=== PATIENT | female | born 1960 | race Caucasian/White ===

== ENCOUNTER 2017-01-01 11:43 | Emergency (ER) | payer OTHER | END 2017-01-01 14:00 | disposition home or self-care (01) | DX: R07.89 Other chest pain (principal); R00.1 Bradycardia, unspecified; R94.31 Abnormal electrocardiogram [ECG] [EKG]; I10 Essential (primary) hypertension; E78.00 Pure hypercholesterolemia, unspecified ==

== ENCOUNTER 2017-10-03 11:39 | Emergency (ER) | payer OTHER ==
[2017-10-03 11:48] VITALS: BP 150/103
[2017-10-03 12:54] LABS: CALCIUM 9.1 mg/dL (8.5-10.3); CREATININE 0.7 mg/dL (0.4-1.0)
--- NOTE | 2017-10-03 14:30 | ED Physician Documentation ---
History of Present Illness - Stated complaint Stated Complaint: ABNORMAL LAB - Chief complaint Chief Complaint: General - History obtained from History obtained from: Patient - History of Present Illness Timing: Other (She had routine labs done of the base few days ago and she was called because of hyperkalemia. It sounds like they actually repeated and it was normal but for some reason she was referred here for further evaluation and treatment. She feels fine.) Review of Systems Respiratory: reports: Reviewed and negative GI: reports: Reviewed and negative : denies: Dysuria, Frequency PD PAST MEDICAL HISTORY - Past Medical History Past Medical History: Yes Cardiovascular: Hypertension, High cholesterol - Past Surgical History Past Surgical History: No - Present Medications Home Medications: Ambulatory Orders Medication Instructions Recorded Confirmed Lipitor Unknown Dose 01/01/17 Micardis Unknown Dose 01/01/17 - Allergies Allergies/Adverse Reactions: Allergies Allergy/AdvReac Type Severity Reaction Status Date / Time No Known Drug Allergies Allergy Verified 10/03/17 11:48 - Social History Does the pt smoke?: No Smoking Status: Never smoker Does the pt drink ETOH?: Yes ETOH Use: Wine Does the pt have substance abuse?: No - Immunizations Immunizations are current?: Yes - POLST Patient has POLST: No PD ED PE NORMAL - Vitals Vital signs reviewed: Yes - General General: Alert and oriented X 3, No acute distress - Neuro Neuro: Alert and oriented X 3, Normal speech Results - Vitals Vitals: Vital Signs - 24 hr 10/03/17 11:45 Temperature 36.5 C Heart Rate 57 L Respiratory 18 Rate Blood Pressure 150/103 H O2 Saturation 95 Oxygen O2 Source Room air - Labs Labs: Laboratory Tests 10/03/17 12:40 Sodium 138 Potassium 4.1 Chloride 104 Carbon Dioxide 27 Anion Gap 7.0 BUN 17 Creatinine 0.7 Estimated GFR (MDRD) 86 L Glucose 114 H Calcium 9.1 Departure - Departure Disposition: 01 Home, Self Care Clinical Impression: Abnormal laboratory test Condition: Good Record reviewed to determine appropriate education?: Yes Comments: Your blood pressure was elevated today on check into the emergency department. This does not mean that you have hypertension, it is a common phenomenon to come to the emergency department and have elevated blood pressure. I recommend that you see your primary care physician within the week to have it rechecked when you are feeling better.
== END 2017-10-03 14:36 | disposition home or self-care (01) ==
LOC: ED 11:39
DX: E87.5 Hyperkalemia (principal); I10 Essential (primary) hypertension; E78.00 Pure hypercholesterolemia, unspecified
CPT/HCPCS: 36415; 80048; 99282

== ENCOUNTER 2020-06-07 08:46 | Outpatient (CLI) | payer OTHER ==
--- NOTE | 2020-06-15 08:26 | Mammography Report ---
BILATERAL DIGITAL SCREENING MAMMOGRAM 3D/2D: 06/07/2020 CLINICAL: Routine screening. Comparison is made to exams dated: 11/19/2018 mammogram, 07/23/2016 mammogram, and 12/06/2014 mammogra m - [facility]. There are scattered fibroglandular elements in both breasts. No significant masses, calcifications, or other findings are seen in either breast. There has been no significant interval change. IMPRESSION: NEGATIVE There is no mammographic evidence of malignancy. A 1 year screening mammogram is recommended. This exam was interpreted at Station ID: [id number]. NOTE: For mammograms, a report in lay terms will be sent to the patient. Approximately 15% of breast malignancies will not be visualized mammographically. In the management of a palpable breast mass, a negative mammogram must not discourage biopsy of a clinically suspicious lesion. Electronically Signed By: Lalito Wallace M.D., jr/solis:06/14/2020 13:06:06 ACR BI-RADS Category 1: Negative [id number] PARENCHYMAL PATTERN: (A) - The breast(s) demonstrate(s) scattered fibroglandular densities. BI-RADS CATEGORY: (1) - 1 RECOMMENDATION: (ANNUAL) - Recommend routine annual screening mammography. [id number] 1 year screening LATERALITY: (B)
== END 2020-06-07 08:47 | disposition home or self-care (01) ==
LOC: DI.N 08:46
DX: Z12.31 Encounter for screening mammogram for malignant neoplasm of breast (principal)
CPT/HCPCS: 77063; 77067

== ENCOUNTER 2020-09-26 05:35 | Emergency (ER) | payer OTHER ==
--- NOTE | 2020-09-26 06:05 | ED Physician Documentation ---
PD HPI CHEST PAIN - Stated complaint Stated Complaint: CHEST PRESSURE - Chief complaint Chief Complaint: Cardiac - History obtained from History obtained from: Patient - History of Present Illness Timing - onset: Enter time (1730), Last night Timing - onset during: Rest Timing - duration: Hours Timing - details: Abrupt onset, Now resolved Quality: Pressure Location: Substernal Radiation: No: Jaw, Neck, Back, Abdominal, Left upper extremity, Right upper extremity Improved by: Nothing Worsened by: Other (nothing) Associated symptoms: No: Shortness of air, Diaphoresis, Nausea, Vomiting, Feeling faint / dizzy, General Weakness, Palpitations, Cough Similar symptoms before: Diagnosis (GERD) Recently seen: Not recently seen - Additional information Additional information: 60-year-old female with a history of hypertension and reflux was in her usual state of health yesterday went on a run with her grandchild and returned to her home. Some hours later and she does not remember eating dinner she developed pressure in her central chest. She denies any radiation, diaphoresis, nausea or lightheadedness. She did attempt to calm herself by painting and this did not improve the pain. She set her alarm for for 15 to get up to go to work and she still had some residual pain and she felt she needed to be seen for this and has come to the emergency department. Review of Systems Constitutional: denies: Fever Eyes: denies: Decreased vision Ears: denies: Ear pain Nose: denies: Congestion Throat: denies: Sore throat Cardiac: reports: Chest pain / pressure. denies: Palpitations Respiratory: denies: Dyspnea, Cough GI: denies: Abdominal Pain, Nausea, Vomiting, Constipation, Diarrhea : denies: Dysuria, Frequency Skin: denies: Rash Musculoskeletal: denies: Neck pain, Back pain, Extremity pain Neurologic: denies: Generalized weakness, Focal weakness, Numbness PD PAST MEDICAL HISTORY - Past Medical History Cardiovascular: Hypertension, High cholesterol - Past Surgical History Past Surgical History: No - Present Medications Home Medications: Ambulatory Orders Medication Instructions Recorded Confirmed Lipitor Unknown Dose 01/01/17 Micardis Unknown Dose 01/01/17 Amox/Clav 875/125 [Augmentin] 1 each PO Q12H #20 tablet 09/26/20 - Allergies Allergies/Adverse Reactions: Allergies Allergy/AdvReac Type Severity Reaction Status Date / Time No Known Drug Allergies Allergy Verified 10/03/17 11:48 - Social History Does the pt smoke?: No Smoking Status: Never smoker Does the pt drink ETOH?: Yes Does the pt have substance abuse?: No - Immunizations Immunizations are current?: Yes - POLST Patient has POLST: No PD ED PE NORMAL - Vitals Vital signs reviewed: Yes (hypertensive) - General General: Alert and oriented X 3, No acute distress, Well developed/nourished - HEENT HEENT: Atraumatic, PERRL, EOMI - Neck Neck: Supple, no meningeal sign, No bony TTP - Cardiac Cardiac: RRR, No murmur - Respiratory Respiratory: No respiratory distress, Clear bilaterally - Abdomen Abdomen: Normal bowel sounds, Soft, Non tender, Non distended, No organomegaly - Back Back: No CVA TTP, No spinal TTP - Derm Derm: Normal color, Warm and dry, No rash - Extremities Extremities: No deformity, No edema - Neuro Neuro: Alert and oriented X 3, program clinician 2-12 intact, No motor deficit, No sensory deficit, Normal speech Eye Opening: Spontaneous Motor: Obeys Commands Verbal: Oriented GCS Score: 15 - Psych Psych: Normal mood, Normal affect Results - Vitals Vitals: Vital Signs - 24 hr 09/26/20 09/26/20 09/26/20 05:45 05:57 07:18 Temperature 37.1 C 37.1 C Heart Rate 56 L 62 52 L Respiratory 20 16 9 L Rate Blood Pressure 137/88 H 145/84 H 123/81 H O2 Saturation 99 100 98 Oxygen O2 Source Room air - EKG (time done) 0548 Rate: Rate (enter#) (60) Rhythm: NSR [place]: LAD Compare to prior EKG: Changed from prior EKG (SPT 01-01-2017 the rate has increased) Computer interpretation: Disagree with computer (The comupter reads late transition and there is an R wave in V1) - Labs Labs: Laboratory Tests 09/26/20 09/26/20 09/26/20 06:20 06:20 06:20 WBC 6.1 RBC 4.61 Hgb 13.6 Hct 41.8 MCV 90.7 MCH 29.5 MCHC 32.5 RDW 12.5 Plt Count 258 MPV 10.2 Neut # (Auto) 3.2 Lymph # (Auto) 2.0 [place] # (Auto) 0.5 Eos # (Auto) 0.3 Baso # (Auto) 0.1 Absolute Nucleated RBC 0.00 Nucleated RBC % 0.0 Sodium 138 Potassium 4.1 Chloride 104 Carbon Dioxide 27 Anion Gap 7.0 BUN 20 Creatinine 0.8 Estimated GFR (MDRD) 73 L Glucose 82 Calcium 9.5 Total Bilirubin 0.7 AST 22 ALT 21 Alkaline Phosphatase 53 Troponin I High Sens 5.4 Total Protein 6.9 Albumin 4.1 Globulin 2.8 Albumin/Globulin Ratio 1.5 Lipase 24 PD MEDICAL DECISION MAKING - ED course Complexity details: reviewed old records, reviewed results, re-evaluated patient, considered differential, d/w patient ED course: 60-year-old female with substernal chest pain beginning yesterday has resolution of her symptoms prior to coming to the emergency department has a normal elect electrocardiogram and troponin. Her chest x-ray is concerning for a subtle infiltrate in the right base. The patient's chief complaint is fatigue and this episode of chest pain. A coronavirus swab is obtained and the patient is given a gram of Rocephin IM. Departure - Departure Disposition: 01 Home, Self Care Clinical Impression: Atypical chest pain Pneumonia Qualifiers: Pneumonia type: due to unspecified organism Laterality: right Lung location: lower lobe of lung Qualified Code(s): J18.9 - Pneumonia, unspecified organism Condition: Stable Instructions: ED Chest Pain Atypical Unkn Cause, ED Pneumonia Adult Follow-Up: [facility] [Provider Group] Prescriptions: Amox/Clav 875/125 [Augmentin] 1 each PO Q12H #20 tablet Forms: Activity restrictions
[2020-09-26 06:27] LABS: BASOPHILS # (AUTO) 0.1 10^3/uL (0.0-0.1); BASOPHILS % (AUTO) 1.2 %; EOSINOPHILS # (AUTO) 0.3 10^3/uL (0.0-0.7); EOSINOPHILS % (AUTO) 4.6 %; HGB - HEMOGLOBIN 13.6 g/dL (12.0-16.0); LYMPHOCYTES % (AUTO) 33.1 %; MEAN CORPUSCULAR HEMOGLOBIN 29.5 pg (27.0-31.0); MEAN CORPUSCULAR HGB CONC 32.5 g/dL (32.0-36.0); MEAN CORPUSCULAR VOLUME 90.7 fL (81.0-99.0); MEAN PLATELET VOLUME 10.2 fL (7.9-10.8); MONOCYTES # (AUTO) 0.5 10^3/uL (0.0-1.0); MONOCYTES % (AUTO) 8.7 %; NEUTROPHILS # (AUTO) 3.2 10^3/uL (1.5-6.6); NEUTROPHILS % (AUTO) 52.2 %; PLT - PLATELET COUNT 258 10^3/uL (130-450); RED BLOOD COUNT 4.61 10^6/uL (4.20-5.40); RED CELL DISTRIBUTION WIDTH 12.5 % (12.0-15.0); WHITE BLOOD COUNT 6.1 x10^3/uL (4.8-10.8)
[2020-09-26 06:41] LABS: ALBUMIN 4.1 g/dL (3.2-5.5); ALBUMIN/GLOBULIN RATIO 1.5 (1.0-2.2); BILIRUBIN,TOTAL 0.7 mg/dL (0.2-1.0); CALCIUM 9.5 mg/dL (8.5-10.3); CREATININE 0.8 mg/dL (0.4-1.0); TOTAL PROTEIN 6.9 g/dL (6.7-8.2)
[2020-09-26] MEDS ORDERED: cefTRIAXone 1 GM in SODIUM CHLORIDE 0.9% MINIBAG 100 ML IV STA (07:22)
[2020-09-26] MEDS ORDERED: cefTRIAXone 1 GM VIAL IM STA (07:26)
[2020-09-26] MEDS ORDERED: LIDOCAINE 1% 2 ML VIAL MC ONE (07:26)
[2020-09-26 08:03] VITALS: BP 155/112
--- NOTE | 2020-09-26 08:18 | XRAY Report ---
PROCEDURE: Chest 1 View X-Ray INDICATIONS: chest pain TECHNIQUE: One view of the chest was acquired. COMPARISON: 01/01/2017 FINDINGS: Surgical changes and devices: None. Lungs and pleura: No pleural effusions or pneumothorax. Subtle opacity in right infrahilar region is seen, early developing infiltrate cannot be excluded. No other area of abnormal airspace opacity. Mediastinum: Mediastinal contours appear normal. Heart size is normal. Bones and chest wall: No suspicious bony lesions. Overlying soft tissues appear unremarkable. IMPRESSION: Questionable opacity in right infrahilar region, developing right middle lobe infiltrate cannot be en tirely excluded. Clinical correlation and radiographic follow-up is recommended. No discrepancies. Reviewed by: Marvin Valdez MD on 09/26/2020 8:17 AM PST Approved by: Marvin Valdez MD on 09/26/2020 8:17 AM PST Station ID: [id number]
== END 2020-09-26 08:02 | disposition home or self-care (01) ==
LOC: ED 05:35
DX: J18.9 Pneumonia, unspecified organism (principal); R07.89 Other chest pain; I10 Essential (primary) hypertension; Z20.828 Contact with and (suspected) exposure to other viral communicable diseases
CPT/HCPCS: 36415; 80053; 83690; 84484; 85025; 93005; 96372; 99284

== ENCOUNTER 2020-11-28 13:44 | Outpatient (CLI) | payer OTHER ==
[2020-11-28 14:26] VITALS: BP 119/78
--- NOTE | 2020-11-28 14:26 | SLEEP CARE CONSULTATION ---
Information from patient questionnaire entered by Jose M Collier. I have reviewed and concur with the information entered by Jose M Collier. This document represents the service I personally performed and the decisions made by me, Yenny Liu ARNP. History of Present Illness Service Date and Time: 11/28/2020 1344 Reason for Visit: New patient Chief Complaint: reports: Unrefreshed sleep, Snoring, Excessive daytime sleepiness, Observed pauses in breathing, Fatigue, Frequent awakenings at night Date of Onset: Few years has gotten worse last years or so Usual bedtime: 8:30-9:00 up at 4:45 AM Time it takes to fall asleep: Maybe 30 min Snores at night: Yes Sleeps alone due to snoring: Yes Number of times waking at night: At least 4 Reasons for waking at night: reports: Snoring, Bathroom. denies: Choking, Gasping for air Toss, Turn, or Twitch while sleeping: Yes Recalls having dreams: No Usually gets out of bed at: 4:15 AM Feels refreshed in the morning: No Morning headache: No Sleepy or fatigued during the day: Yes Ever fallen asleep while driving: No Takes day naps: No Dreams during day naps: No Prior sleep studies: No Additional HPI information: I had the pleasure of seeing CHERELLE GOMEZ today regarding the possibility of her having a sleep disorder. Her current complaints are loud snoring that wakes her up, observed pauses in breathing, frequent night awakenings, unrefreshed sleep, excessive daytime sleepiness and fatigue. She had pneumonia around and took 2 rounds of antibiotics. She saw her doctor when going through some pneumonia recovery because she was still fatigued. She gets up at 0415 to start her day and goes to sleep around at 8:30 because she is so tired. - Parasomnia Symptoms Ever been unable to move upon waking from sleep: No Walks in sleep: No Talks in sleep: Yes Ever acted out dreams in sleep: No Ever felt weak in the knees when startled or emotional: No Bothered by creepy, crawly, restless sensations in legs: No Problems with memory or concentration: Yes (A little; sometimes short term is not as good) Subjective Initial [place] Sleepiness Scale score: 4 (in 2020) Past Medical History Past Medical History: reports: Hypertension, Arthritis, GERD. 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 Patient is and lives in [place]. Have you smoked in the past 12 months: No Alcohol use: Yes Alcohol amount and frequency: 1 or 2, 2 times per month Caffeine use: Yes Caffeine amount and frequency: 2 per day Family History Family history of sleep disordered breathing: No (Not sure) Allergies and Home Medications Drug allergies reviewed: Yes (NKDA) Home medication list reviewed: Yes Allergy and home medication list: Micardis Review of Systems Weight gain over past 5 years: 10 Cardiovascular: reports: high blood pressure (at times), chest pain, irregular heart rate or pulse (has a heart murmur that is irregular), have to sleep sitting up Gastrointestinal: reports: heartburn (at times), nausea (at times), abdominal pain (at times) Neurological: reports: gait or balance problems. denies: headaches Psychiatric: reports: claustrophobia. denies: anxiety, depression Ear/Nose/Throat: reports: dry mouth/throat, wisdom teeth removed. denies: tonsillectomy Endocrine: reports: too hot or cold Musculoskeletal: reports: joint pain, neck pain, back pain, joint swelling, muscle pain or cramping Immunologic: reports: sneezing (runny nose) Physical Exam Blood Pressure: 119/78 Cuff size: wrist Heart Rate: 54 O2 Saturation: 97 Height: 5 ft 6 in Weight: 150 lb Body Mass Index: 24.2 BMI Classification: Healthy weight Neck circumference: 13.25 (inches) Nostrils: patent to airflow Mouth and throat: narrow oropharynx Soft palate: long Hard palate: normal Uvula: normal Uvula visualization: 50% Mallampati Class II Tongue: enlarged in size with teeth white on lateral edges Tonsils: 2+ Chin and jaw: normal size and position Neck: normal w/o lymphadenopathy or thyromegaly Heart: regular rate and rhythm Lungs: clear bilaterally Impression and Plan 1. Suspected Obstructive Sleep Apnea-Hypopnea Syndrome, as suggested by a history of loud and irregular snoring, frequent awakening during the night, unrefreshed sleep, cognitive impairment, and excessive daytime sleepiness. Narrow oropharynx and obesity are common predisposing factors for obstructive sleep apnea-hypopnea syndrome. I recommend proceeding to polysomnography to confirm the diagnosis and to assess severity. If the patient has significant sleep disordered breathing, a manual CPAP titration study will also be performed to find the optimal treatment pressure. I informed the patient of what the sleep studies involve and after some discussion, obtained agreement to proceed. The pathophysiology of obstructive sleep apnea-hypopnea syndrome was discussed with the patient and health risks of cardiovascular and cerebrovascular disease if not treated. 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 Patient agreed to plan. * Schedule polysomnography +- manual CPAP titration study and return in 1-2 weeks after the study to discuss result and initiate therapy. * Avoid long distance driving or driving when feeling sleepy. * Avoid alcohol, sedative and muscle relaxant around bedtime. * Review instructions provided by trained office staff on how to prepare for the sleep study. * Return for follow-up after sleep study completed. Visit Type: In Office Time Spent with Patient (minutes): 31 Provider Statement: I spent 100% of the Face to Face Visit with the patient with greater than 50% spent counseling the patient and coordination of care.
== END 2020-11-28 13:45 | disposition home or self-care (01) ==
LOC: SC 13:44
PROVIDERS: ATTEND Nurse Practitioner Family
DX: R06.83 Snoring (principal); R06.81 Apnea, not elsewhere classified; G47.8 Other sleep disorders; G47.10 Hypersomnia, unspecified; R41.89 Other symptoms and signs involving cognitive functions and awareness
CPT/HCPCS: 99203; 99212

== ENCOUNTER 2020-12-21 08:04 | Outpatient (CLI) | payer OTHER | END 2020-12-21 08:05 | disposition home or self-care (01) | LOC: SC 08:04 | PROVIDERS: ATTEND Nurse Practitioner Family | DX: G47.33 Obstructive sleep apnea (adult) (pediatric) (principal); R09.02 Hypoxemia; I10 Essential (primary) hypertension | CPT/HCPCS: 95806 ==

== ENCOUNTER 2020-12-26 14:02 | Outpatient (CLI) | payer OTHER ==
--- NOTE | 2020-12-26 14:47 | SLEEP CARE CONSULTATION ---
Information from patient questionnaire entered by Jose M Collier. I have reviewed and concur with the information entered by Jose M Collier. This document represents the service I personally performed and the decisions made by me, Yenny Liu ARNP. History of Present Illness Service Date and Time: 12/26/2020 1402 Initial [place] Sleepiness Scale score: 4 (in 2020) Current [place] Sleepiness Scale score: 5 Additional HPI information: CHERELLE GOMEZ returns for follow up and results of the recently performed home sleep study. I explained the pathophysiology behind obstructive sleep apnea. We then spent quite a bit of time discussing different treatment options. For mild obstructive sleep apnea, surgery and oral appliance are alternatives to nasal CPAP therapy but in moderate or severe cases, nasal CPAP is the most effective and reliable treatment. Because apnea is primarily in supine position, then positional management therapy could be effective. Methods discussed such as positioning with pillows, using a T-shirt with tennis balls in the back, and shown commercial products that have a pillow format on back to prevent supine sleep. I reviewed the impact of weight changes on sleep apnea and strongly recommended losing weight. After some discussion, the patient opted to go with the nasal CPAP therapy. Nasal autoCPAP set at 4-15 cmH20 will be ordered with rationale explained. A manual titration study will be ordered if unable to find optimal pressure with office adjustments. I explained how CPAP machine works with sample devices Respironics Dreamstation and ResBonaverde [id number] and what to expect when using the machine. Using CPAP every night in order to get used to it was emphasized. Patient advised to put CPAP mask on before getting into bed so as not to fall asleep without CPAP. To assist acclimation to CPAP use, it could also be used for a short time during day while reading or watching TV. The patient was instructed to call the CPAP supplier to discuss any mechanical problem that may occur. If the mask given is uncomfortable or is difficult to keep on through the night even with adjustment, contact the CPAP supplier as many will replace with another mask style if notified before 30 days. If snoring or perceives is not getting enough air or too much air from the machine, notify this office. [facility] patient education PAP tips reviewed and given to patient. Patient counseled not drink alcohol less than 4 hours before bedtime as it can increase snoring and apnea. Patient was cautioned about risks of drowsy driving until sleepiness symptoms resolve. Sleep Study - Results Type of Sleep Study: Home sleep study Prior sleep studies: No Polysomnography/Home Sleep Study results: Physician Impression: The quality of the study is good. The length of the study is adequate (> 240 minutes). Please also see the tabulated and graphic data. 1. Obstructive Sleep Apnea-Hypopnea (ICD-10 G47.33), moderate, with an AHI of 20.0/hr and yeni SaO2 of 71%. During the study, the patient had 132 apneas (129 obstructive, 0 central, 3 mixed) and 54 hypopneas. The longest episode lasted 89.0 seconds. The respiratory events occurred more frequently during supine sleep (supine AHI was 33.4 and non-supine, 8.71). 2. Hypoxemia (ICD-10 R09.02), moderate, with the lowest oxygen saturation of 71 % and 16.2 minutes with SaO2 under 90%. Baseline oxygen saturation was normal (Average oxygen saturation was 94%). Allergies and Home Medications Home medication list reviewed: Yes (no changes) Review of Systems Review of systems same as previous: Yes (no changes) Physical Exam Heart Rate: 53 O2 Saturation: 98 Height: 5 ft 6 in Weight: 149 lb Body Mass Index: 24.0 BMI Classification: Healthy weight Impression and Plan 1. Obstructive Sleep Apnea-Hypopnea Syndrome, moderate, with lowest oxygen saturation of 71%. Obviously this is the cause of the patients symptoms of unrefreshed sleep, and excessive daytime sleepiness. Positive pressure therapy could benefit hypertension and gastric reflux. As mentioned above, the patient will be started on nasal autoCPAP therapy with pressure set at 4-15 cmH2O. A manual titration study will be completed if unable to find optimal treatment pressure with office adjustments. Compliance guidelines also reviewed. A copy of compliance guidelines will be given for reference at check out. 2. Hypoxemia, moderate, with the lowest oxygen saturation of 71 % and 16.2 minutes with SaO2 under 90%. Her baseline oxygen saturation was normal with an average oxygen saturation of 94%. * Nasal auto CPAP therapy, pressure at 4-15 cm H2O. * Avoid alcohol consumption near bedtime. * Avoid supine sleep until using CPAP. * The patient is again cautioned about driving until sleepiness completely resolves. * Return one month after CPAP obtained. I will assess response to therapy and compliance at that time. Visit Type: In Office Time Spent with Patient (minutes): 21 Provider Statement: I spent 100% of the Face to Face Visit with the patient with greater than 50% spent counseling the patient and coordination of care.
== END 2020-12-26 14:03 | disposition home or self-care (01) ==
LOC: SC 14:02
PROVIDERS: ATTEND Nurse Practitioner Family
DX: G47.33 Obstructive sleep apnea (adult) (pediatric) (principal); R06.09 Other forms of dyspnea
CPT/HCPCS: 99212; 99213

== ENCOUNTER 2021-02-19 09:58 | Outpatient (CLI) | payer OTHER ==
--- NOTE | 2021-02-19 10:42 | SLEEP CARE CONSULTATION ---
Information from patient questionnaire entered by Kari Esparza. I have reviewed and concur with the information entered by Kari Esparza. This document represents the service I personally performed and the decisions made by , Yenny Liu ARNP. History of Present Illness Service Date and Time: 02/19/2021 0958 Previous diagnosis: Moderate, Obstructive Sleep Apnea-Hypopnea Syndrome AHI: 20.0 (in 2020) Reason for follow up: first compliance Equipment type: CPAP Equipment obtained from: [employer] (getting supplies as needed) Mask style: Nasal (cushion) Backup mask available: No (will keep old mask when replaced) Last cushion change: 2 weeks Prior sleep studies: Yes Year and Where: 2020 - [facility] Type of Sleep Study: Home sleep study HPI additional information: CHERELLE GOMEZ was diagnosed to have moderate, AHI 20.0, obstructive sleep apnea- hypopnea syndrome and returned today for CPAP therapy first compliance follow- up. CPAP Compliance Data - Data Reviewed with Patient Average duration of nightly device use: 5 hr 46 min Compliance rate %: 70 (40 days) Current pressure setting (cmH2O): 4-15 (mean 6.5, avg 8.8, max 11.1) Humidity settin Heated hose settin Average residual AHI: 7.4 Central apnea: 0.7 Obstructive apnea: 2.3 Hypopnea: 4.4 Average large leak: 9 min 15 sec Subjective Patient concerns: reports: mask leak noise (just from movement while asleep), nasal congestion, dry mouth, nose, throat. denies: aerophagia, mask discomfort, air blowing in eyes, condensation in mask/hose, epistaxis, other Observed to snore while using device: No Current pressure setting perceived as: comfortable (or too high; was at first but is getting more used to it) On therapy, patient: reports: sleeping better, awakening more refreshed, being more awake and alert during the day, more rested overall. denies: drowsiness while driving Initial [place] Sleepiness Scale score: 4 (in 2020) Current [place] Sleepiness Scale score: 8 Allergies and Home Medications Home medication list reviewed: Yes (no new meds) Review of Systems Review of systems same as previous: Yes (no changes) Physical Exam Heart Rate: 51 O2 Saturation: 96 Height: 5 ft 6 in Weight: 149 lb Body Mass Index: 24.0 BMI Classification: Healthy weight Impression and Plan 1. Obstructive Sleep Apnea-Hypopnea Syndrome, moderate, with good treatment compliance and fair apnea control with elevated residual AHI. On CPAP therapy, the patient has better sleep quality and is more rested overall. I am going to adjust her pressure to reflect pressures she is using and to try to reduce the residual AHI to 9-11 cmH2O. She was encouraged to let me know if the pressure feels uncomfortable and I can try to adjust pressures. I discussed with patient the AHI goals and reasonings. She has been getting mask leaks when she turns on her side. She would rather sleep on her side but has more leaks when she does. Mask leaks predominately from when patient sleeps on their side can be reduced by using a CPAP pillow. A CPAP pillow sample was shown. This and other styes can be purchased online. She has also had some increase in nasal congestion (clearing of nose in the morning) and mouth dryness. Oral dryness can be reduced by adjusting humidity setting higher or heated hose lower or by adjusting both settings. Verbal instructions given on how to change humidity and heated hose settings with rationale explaining why to change. She voiced understanding. Patient's apnea severity and rationale for treatment to reduce apnea, improve sleep quality and reduce cardiovascular and cerebrovascular events was reviewed. I also reviewed the benefit of consistent device use of CPAP for hypertension, and gastric reflux. * Change auto CPAP pressure to 9-11 cmH2O * Notify me if snoring with mask or feeling that the pressure is too much or too little * Maintain a healthy weight * Call this office if any problems using CPAP * Return for follow up in 1-2 months, or sooner if concerns arise Counseling Topics: Spare mask, Weight control Visit Type: In Office Time Spent with Patient (minutes): 22 Provider Statement: I spent 100% of the Face to Face Visit with the patient with greater than 50% spent counseling the patient and coordination of care.
== END 2021-02-19 09:59 | disposition home or self-care (01) ==
LOC: SC 09:58
PROVIDERS: ATTEND Nurse Practitioner Family
DX: G47.33 Obstructive sleep apnea (adult) (pediatric) (principal)
CPT/HCPCS: 99212; 99213

== ENCOUNTER 2021-03-09 09:15 | Outpatient (CLI) | payer OTHER | END 2021-03-09 09:16 | disposition home or self-care (01) | LOC: RT 09:15 | PROVIDERS: ATTEND Family Medicine | DX: R06.00 Dyspnea, unspecified (principal) | CPT/HCPCS: 94010; 94727; 94729 ==

== ENCOUNTER 2021-04-03 07:55 | Outpatient (CLI) | payer OTHER | END 2021-04-03 07:56 | disposition home or self-care (01) | LOC: DI 07:55 | PROVIDERS: ATTEND Family Medicine | DX: R01.1 Cardiac murmur, unspecified (principal); I11.9 Hypertensive heart disease without heart failure | CPT/HCPCS: 93306 ==

== ENCOUNTER 2023-06-03 09:07 | Outpatient (CLI) | payer OTHER | END 2023-06-03 09:08 | disposition home or self-care (01) | LOC: DI 09:07 | PROVIDERS: ATTEND Physician Assistant | DX: R60.0 Localized edema (principal); I51.7 Cardiomegaly | CPT/HCPCS: 93306 ==

== ENCOUNTER 2023-08-10 13:33 | Outpatient (CLI) | payer MEDICARE, OTHER ==
--- NOTE | 2023-08-18 10:36 | Mammography Report ---
BILATERAL DIGITAL SCREENING MAMMOGRAM 3D/2D: 08/10/2023 CLINICAL: Routine screening. Comparison is made to exams dated: 06/07/2020 mammogram - [facility], 11/19/2018 [facility], 07/23/2016 mammogram, and 12/06/2014 mammogram - [facility]. There are scattered areas of fibroglandular density in both breasts (category b / 25%-50% glandular t issue). No significant masses, calcifications, or other findings are seen in either breast. IMPRESSION: NEGATIVE There is no mammographic evidence of malignancy. A 1 year screening mammogram is recommended. Based on the Tyrer Cuzick model (a risk assessment model) the patients lifetime risk is 12.6% and he r 10 year risk is 6.1%. According to the ACR, ACS, and NCCN guidelines, an annual breast MRI exam luis ng with mammogram is recommended if the patients lifetime risk is 20% or greater. This exam was interpreted at Station ID: [id number]. NOTE: For mammograms, a report in lay terms will be sent to the patient. Approximately 15% of breast malignancies will not be visualized mammographically. In the management of a palpable breast mass, a negative mammogram must not discourage biopsy of a clinically suspicious lesion. Electronically Signed By: Cate Witt M.D., PH.D eb/penrad:08/17/2023 20:21:32 letter sent: No_Letter ACR BI-RADS Category 1: Negative 3341F PARENCHYMAL PATTERN: (A) - The breast(s) demonstrate(s) scattered fibroglandular densities. BI-RADS CATEGORY: (1) - 1 Mammogram [id number] 1 year screening LATERALITY: (B)
== END 2023-08-10 13:34 | disposition home or self-care (01) ==
LOC: DI.N 13:33
DX: Z12.31 Encounter for screening mammogram for malignant neoplasm of breast (principal); R92.323 Mammographic fibroglandular density, bilateral breasts